=== PATIENT | female | born 1945 | race Caucasian/White ===

== ENCOUNTER 2017-07-23 13:02 | Observation (INO) ==
[2017-07-23 14:08] LABS: Basophils % 0.4 %; Eosinophils # 0.1 K/mcL (0.0-0.6); Eosinophils % 1.1 %; Hematocrit 46.1 % (35.3-44.9); Hemoglobin 15.1 g/dL (11.5-15.4); Immature Granulocytes % 0.3 % (0-4); Lymphocytes # 1.5 K/mcL (0.6-4.6); Lymphocytes % 20.4 %; Mean Corpuscular HGB Conc 32.8 g/dL (31.6-35.5); Mean Corpuscular Volume 88.7 fL (83.0-100.0); Mean Platelet Volume 10.3 fL (9.4-12.4); Monocytes # 0.6 K/mcL (0.0-1.3); Monocytes % 7.8 %; Neutrophils # 5.1 K/mcL (1.6-8.9); Platelet Count 219 K/mcL (140-400); Red Cell Distribution Width 13.2 % (11.5-14.5)
[2017-07-23 14:16] LABS: Bilirubin,Urine Negative (Negative); Blood,Urine Negative (Negative); Clarity,Urine Clear (Clear); Color,Urine Yellow (Yellow); Glucose,Urine (UA) Normal (Normal); Ketones,Urine Trace mg/dL (Negative); Leukocyte Esterase,Urine Negative (Negative); Nitrite,Urine Negative (Negative); Protein,Urine Negative (Neg-Trace); Specific Gravity,Urine 1.022 (1.010-1.025); Urobilinogen,Urine Normal (Normal)
[2017-07-23] MEDS: Nitroglycerin 0.4 MG TAB.SUBL SL PRN ×2 (14:17→14:34)
[2017-07-23 14:18] LABS: BUN/Creatinine Ratio 24 (6-26); Blood Urea Nitrogen 19 mg/dL (7-20); Calcium 10.4 mg/dL (8.6-10.8); Carbon Dioxide 28 mEq/L (19-29); Chloride 104 mEq/L (98-109); Glucose 90 mg/dL (70-99); Osmolality,Calculated 296 (280-300); Potassium 3.7 mEq/L (3.5-4.5); Sodium 142 mEq/L (136-145); eGFR For African Americans > 60 (> 60); eGFR For Non-African Americans > 60 (> 60)
[2017-07-23] MEDS ORDERED: Aspirin 81 MG TAB.CHEW PO ONE (14:41)
--- NOTE | 2017-07-23 14:51 | Emergency Department Note ---
Disposition Clinical Impression: Chest pain of uncertain etiology Disposition: Admitted As Inpatient Condition: Fair Time of Disposition: 15:47 Chest Pain HPI - General Chief Complaint: ED Chest Pain Stated Complaint: chest pain Time Seen by Provider: 07/23/17 13:13 Source: patient Limitations: no limitations Vital Signs Reviewed: Yes Nursing Notes Reviewed: Yes - History of Present Illness HPI Narrative: 71-year-old female complains of chest pain that started 0930 hrs. today with radiation to left arm neck and back of the head and left side. Patient states she has been having this achy chest pain 3/4 in intensity for the past 3 weeks. Patient states the pain is still around 3/4.Patient states she was fine when she woke up today but at 9:30 hours she started having pain in the back of her head and neck on the left side along with intermittent pain down her left arm which is concerning. Patient has a history of high blood pressure and is on atenolol and hydrochlorothiazide. Patient has not had any cardiac events. The patient denies tobacco use and alcohol use. Severity scale (1-10): 0 - Related Data Home Medications Medication Instructions Recorded Confirmed Aspirin 81 mg PO DAILY 10/07/16 07/23/17 Atenolol [Tenormin] 25 mg PO DAILY 10/07/16 07/23/17 Calcium Carbonate/Vitamin D3 1 tab PO DAILY 10/07/16 07/23/17 [Calcium 600-Vit D3 200 Tablet] Glucosamine/D3/Boswellia Naina 1 tab PO DAILY 10/07/16 07/23/17 [Osteo Bi-Flex Tablet] Mv-Mn/FA/Vit K1/Lycop/Lut/Zeax 1 tab PO DAILY 10/07/16 07/23/17 [Ocuvite Eye + Multi Tablet] [place]-3/Dha/Epa/Fish Oil [Fish Oil 1,000 mg PO DAILY 10/07/16 07/23/17 1,000 mg Softgel] Vitamin E Acid Succinate [Vitamin 100 unit PO DAILY 10/07/16 07/23/17 E] hydroCHLOROthiazide 25 mg PO DAILY 10/07/16 07/23/17 [Hydrochlorothiazide] Allergies Allergy/AdvReac Type Severity Reaction Status Date / Time acetaminophen [From Percocet] AdvReac Gastrointestinal Verified 07/23/17 13:05 Upset Oxycodone [From Percocet] AdvReac Gastrointestinal Verified 07/23/17 13:05 Upset triamcinolone [From Kenalog] AdvReac Hypertensio Verified 07/23/17 13:05 n All systems ED: reviewed and negative except as stated. Review of Systems: As Per HPI Constitutional: Denies: fever, weakness Eyes: Denies: vision change ENT ED: Denies: congestion Cardiovascular: Denies: chest pain Respiratory: Denies: cough, dyspnea, wheezes Gastrointestinal: Denies: abdominal pain, nausea, vomiting, diarrhea Genitourinary: Denies: urgency, dysuria Musculoskeletal: Reports: neck pain. Denies: back pain Integumentary: Denies: rash Neurological: Reports: headache. Denies: weakness, numbness, paresthesias Psychiatric: Denies: anxiety Endocrine: Denies: fatigue Chest Pain PMH - Past Medical History Medical history: Reports: hypertension Surgical history: Reports: other Psychiatric history: Reports: no psych history OCC THERAPY ASST history: Reports: bilateral tubal ligation - Social History Smoking Status: Never smoker Alcohol use: Reports: none Drug use: Reports: none Physical Exam Vital Signs Temperature 98.2 F 07/23/17 13:03 Pulse Rate 73 07/23/17 13:03 Respiratory Rate 18 07/23/17 13:03 Blood Pressure 175/113 07/23/17 13:03 O2 Sat by Pulse Oximetry 99 07/23/17 13:03 Temperature 98.2 F 07/23/17 13:41 Pulse Rate 74 07/23/17 14:49 Respiratory Rate 14 07/23/17 14:49 Blood Pressure 115/84 07/23/17 14:49 O2 Sat by Pulse Oximetry 97 07/23/17 14:49 Oxygen Delivery Oxygen Delivery Room Air 18-year-old female who is alert and oriented 3 and is in mild distress secondary to chest discomfort. Discomfort is not reproducible with palpation. Patient is nontoxic appearing. Patient is hypertensive to 135/113. Reexamination blood pressure 115/84 after nitroglycerin 2 - General Limitations: no limitations General appearance: alert, in no apparent distress - Head Head exam: atraumatic, normocephalic, normal inspection - Eye Eye exam: Present: normal appearance, PERRL, EOMI. Absent: nystagmus, miosis, mydriasis - ENT ENT exam: normal exam, normal oropharynx, mucous membranes moist - Neck Neck exam: Present: normal inspection, full ROM, trachea midline, tenderness ( Left side posterior paraspinal) - Chest Chest inspection: Present: normal inspection, symmetric chest wall rise - Respiratory Respiratory exam: Present: normal lung sounds bilaterally - Cardiovascular Cardiovascular exam: Present: regular rate, normal rhythm, normal heart sounds - Abdominal Exam Abdominal exam: Present: soft, Non-Tender. Absent: tenderness, distention, guarding, rebound, rigidity - Extremities Exam Extremities exam: Present: normal inspection, full ROM, normal capillary refill , other (Pulses equal regular bilateral radial and dorsal pedal). Absent: tenderness, pedal edema - Back Exam Back exam: Present: normal inspection, full ROM. Absent: tenderness, CVA tenderness (R), CVA tenderness (L), muscle spasm, vertebral tenderness, rashes Course Vital Signs Temperature 98.2 F 07/23/17 13:03 Pulse Rate 73 07/23/17 13:03 Respiratory Rate 18 07/23/17 13:03 Blood Pressure 175/113 07/23/17 13:03 O2 Sat by Pulse Oximetry 99 07/23/17 13:03 Temperature 97.8 F 07/23/17 16:23 Pulse Rate 63 07/23/17 16:23 Respiratory Rate 14 07/23/17 16:23 Blood Pressure 136/82 07/23/17 16:23 O2 Sat by Pulse Oximetry 100 07/23/17 16:24 Oxygen Delivery Oxygen Delivery Room Air Chest Pain - MDM Narrative Medical decision making narrative: Chest pain ACS/PR rule out. Patient is negative troponins. No signs ischemia on EKG but is having occasional PVCs. Patient has normal-appearing chest x-ray with no widened mediastinum and no pneumothorax no consolidations, clean heart borders visualized notes. Aortic knob. Patient received at 325 of aspirin and 2 doses of 0.4 sublingual nitroglycerin which brought patient's pain from 4-0. One-inch nitroglycerin paste. Patient except physician for admission for trending of troponins and follow-up studies. Dr. Reilly the hospitalist accepted patient for admission at 1544 hrs. - Lab Data Lab results reviewed: Yes I reviewed the patient's lab results. Lab results narrative: Short CBC 07/23/17 Range/Units 13:39 WBC 7.3 (4.3-11.1) K/mcL Hgb 15.1 (11.5-15.4) g/dL Hct 46.1 H (35.3-44.9) % Plt Count 219 (140-400) K/mcL Neutrophils # 5.1 (1.6-8.9) K/mcL BMP 07/23/17 Range/Units 13:39 Sodium 142 (136-145) mEq/L Potassium 3.7 (3.5-4.5) mEq/L Chloride 104 (98-109) mEq/L Carbon Dioxide 28 (19-29) mEq/L BUN 19 (7-20) mg/dL Creatinine 0.79 (0.57-1.11) mg/dL Glucose 90 (70-99) mg/dL Calcium 10.4 (8.6-10.8) mg/dL Cardiac Enzymes 07/23/17 Range/Units 13:39 Troponin I 0.00 (0-0.03) ng/mL Urine 07/23/17 Range/Units 14:06 Urine Color Yellow (Yellow) Urine Clarity Clear (Clear) Urine pH 7.0 (5.0-8.0) pH Units Ur Specific [place] 1.022 (1.010-1.025) Urine Protein Negative (Neg-Trace) mg/dL Urine Glucose (UA) Normal (Normal) mg/dL Result diagrams: 07/23/17 13:39 07/23/17 13:39 Lab Results 07/23/17 07/23/17 07/23/17 Range/Units 13:39 13:39 13:39 WBC 7.3 (4.3-11.1) K/mcL RBC 5.20 H (3.82-4.97) M/mcL Hgb 15.1 (11.5-15.4) g/dL Hct 46.1 H (35.3-44.9) % MCV 88.7 (83.0-100.0) fL MCH 29.0 (28.0-33.3) pg MCHC 32.8 (31.6-35.5) g/dL RDW 13.2 (11.5-14.5) % Plt Count 219 (140-400) K/mcL MPV 10.3 (9.4-12.4) fL Immature Gran % 0.3 (0-4) % Seg Neutrophils % 70.0 % Lymphocytes % 20.4 % Monocytes % 7.8 % Eosinophils % 1.1 % Basophils % 0.4 % Neutrophils # 5.1 (1.6-8.9) K/mcL Lymphocytes # 1.5 (0.6-4.6) K/mcL Monocytes # 0.6 (0.0-1.3) K/mcL Eosinophils # 0.1 (0.0-0.6) K/mcL Basophils # 0.0 (0.0-0.2) K/mcL Sodium 142 (136-145) mEq/L Potassium 3.7 (3.5-4.5) mEq/L Chloride 104 (98-109) mEq/L Carbon Dioxide 28 (19-29) mEq/L BUN 19 (7-20) mg/dL Creatinine 0.79 (0.57-1.11) mg/dL Est GFR ( Amer) > 60 (> 60) Est GFR (Non-Af Amer) > 60 (> 60) BUN/Creatinine Ratio 24 (6-26) Glucose 90 (70-99) mg/dL Calculated Osmolality 296 (280-300) Calcium 10.4 (8.6-10.8) mg/dL Troponin I 0.00 (0-0.03) ng/mL Urine Color (Yellow) Urine Clarity (Clear) Urine pH (5.0-8.0) pH Units Ur Specific [place] (1.010-1.025) Urine Protein (Neg-Trace) mg/dL Urine Glucose (UA) (Normal) mg/dL Urine Ketones (Negative) mg/dL Urine Blood (Negative) Urine Nitrite (Negative) Urine Bilirubin (Negative) Urine Urobilinogen (Normal) mg/dL Ur Leukocyte Esterase (Negative) Ur Culture Indicated? (NO) 07/23/17 Range/Units 14:06 WBC (4.3-11.1) K/mcL RBC (3.82-4.97) M/mcL Hgb (11.5-15.4) g/dL Hct (35.3-44.9) % MCV (83.0-100.0) fL MCH (28.0-33.3) pg MCHC (31.6-35.5) g/dL RDW (11.5-14.5) % Plt Count (140-400) K/mcL MPV (9.4-12.4) fL Immature Gran % (0-4) % Seg Neutrophils % % Lymphocytes % % Monocytes % % Eosinophils % % Basophils % % Neutrophils # (1.6-8.9) K/mcL Lymphocytes # (0.6-4.6) K/mcL Monocytes # (0.0-1.3) K/mcL Eosinophils # (0.0-0.6) K/mcL Basophils # (0.0-0.2) K/mcL Sodium (136-145) mEq/L Potassium (3.5-4.5) mEq/L Chloride (98-109) mEq/L Carbon Dioxide (19-29) mEq/L BUN (7-20) mg/dL Creatinine (0.57-1.11) mg/dL Est GFR ( Amer) (> 60) Est GFR (Non-Af Amer) (> 60) BUN/Creatinine Ratio (6-26) Glucose (70-99) mg/dL Calculated Osmolality (280-300) Calcium (8.6-10.8) mg/dL Troponin I (0-0.03) ng/mL Urine Color Yellow (Yellow) Urine Clarity Clear (Clear) Urine pH 7.0 (5.0-8.0) pH Units Ur Specific [place] 1.022 (1.010-1.025) Urine Protein Negative (Neg-Trace) mg/dL Urine Glucose (UA) Normal (Normal) mg/dL Urine Ketones Trace H (Negative) mg/dL Urine Blood Negative (Negative) Urine Nitrite Negative (Negative) Urine Bilirubin Negative (Negative) Urine Urobilinogen Normal (Normal) mg/dL Ur Leukocyte Esterase Negative (Negative) Ur Culture Indicated? NO (NO) - Radiology Data Radiology results reviewed: Yes I reviewed the patient's radiology results. Chest X-Ray 07/23/17 14:01 IMPRESSION: No acute abnormality. D/ / León Cintron MD / León Cintron MD Interpreting Provider: León Cintron MD - EKG Data EKG attestation: Yes I reviewed and interpreted this EKG. EKG results narrative: EKG taken 07/23/2017 and 1311 hrs. shows a sinus rhythm with occasional PVCs at a rate of 72 beats a minute without any acute ST elevations or depressions melees, rest widening or QT prolongation. No Brugada. EKG was compared to previous EKG taken July 17 between is also shows sinus rhythm with occasional PVCs at rate 67 bpm similar morphology on baseline. Heart Score - Score History: Moderately Suspicious EKG: Non Specific repolarisation Disturbance Age: Greater than 65 Risk Factors: 1-2 risk factors Troponin: Less than normal limit HEART Score Total: 5 Attestation Statement - Attestation Attestation: I examined this patient and my medical decision-making was reviewed with the Resident Physician. I agree with the documented findings, disposition and treatment plan as described except to the extent set forth below. 71-year-old female presents to the emergency department because of chest pain. Over the past 3 weeks been having recurring episodes of short duration chest discomfort which she describes a tight sensation. She is also an intermittent episodes of left jaw pain and left arm pain that sometimes correlate with the chest discomfort but not always. Cannot really decipher any exertional provocation of symptoms. No diaphoresis. No nausea. No dyspnea. Also complains of some pain in the left occipital scalp. No recent trauma. Pleasant, well-appearing female in no apparent distress. She is talkative and interactive. Tender to palpation along the left occipital scalp. Neck is supple without adenopathy. Chest is clear to auscultation bilaterally. Cardiac exam regular without rubs or gallops. Chest wall nontender. Abdomen soft, non-distended and non-tender. EKG presentation and has frequent PVCs but no other acute abnormality. Initial metabolic workup and troponins are normal. She had chest pain upon arrival and this resolved after nitroglycerin. She is given aspirin and will be admitted for further evaluation
[2017-07-23] MEDS ORDERED: Nitroglycerin 1 INCH/GM PACKET TP ONE (15:46)
--- NOTE | 2017-07-23 17:45 | Internal Med History&Physical ---
Date of Encounter: 07/23/17 Time of Encounter: 17:42 Assessment and Plan (1) Precordial chest pain Current visit: Yes Status: Acute Atypical chest pain. However the patient has risk factors therefore will observe. Monitor on telemetry. Trend troponin. Obtain echocardiogram and stress test in the morning. (2) Essential hypertension Current visit: Yes Status: Acute Continue her home medications. (3) Anxiety Current visit: Yes Status: Acute Reassurance and therapeutic communication. No medication needed at this time. Internal Medicine - H&P: HPI Chief complaint: Chest pain Admitted From: Emergency Dept Plans for Post Hospital Care: Home History of present illness: Ms. Nevarez is a 71 year old female with past medical history significant for essential hypertension and mitral valve prolapse. She reports that she has been having mild intensity left-sided aching chest pain for 2 weeks. Today she developed left jaw pain which was pressure-like and radiating down the left arm , not associated with nausea or diaphoresis, not related to exertion. She felt generally fatigued today and because of these symptoms she decided to come to the hospital. A 10 point review of systems was negative except as above Surgical history: Carpal tunnel repair and tubal ligation Family history: patient's father suffered with heart disease and of stroke Social history: Never smoker, denies alcohol and drug use. Past Med Surg Social Fam HX - Past Medical History Medical history: hypertension Psychiatric history: no psych history - Past Surgical History Surgical History: other - Social History Smoking Status: Never smoker Smokeless Tobacco Status: No Alcohol use: none Drug use: none - Family History Father Living Status: Hx Family Cardiac Disorders: Yes Internal Medicine - H&P: Meds Aspirin 81 mg PO DAILY 10/07/16 [History] Atenolol [Tenormin] 25 mg PO DAILY 10/07/16 [History] Calcium Carbonate/Vitamin D3 [Calcium 600-Vit D3 200 Tablet] 1 tab PO DAILY [History] Glucosamine/D3/Boswellia Naina [Osteo Bi-Flex Tablet] 1 tab PO DAILY 10/07/16 [ History] Mv-Mn/FA/Vit K1/Lycop/Lut/Zeax [Ocuvite Eye + Multi Tablet] 1 tab PO DAILY 10/07 [History] [place]-3/Dha/Epa/Fish Oil [Fish Oil 1,000 mg Softgel] 1,000 mg PO DAILY 10/07/16 [History] Vitamin E Acid Succinate [Vitamin E] 100 unit PO DAILY 10/07/16 [History] hydroCHLOROthiazide [Hydrochlorothiazide] 25 mg PO DAILY 10/07/16 [History] 3 Allergy/AdvReac Type Severity Reaction Status Date / Time acetaminophen [From Percocet] AdvReac Gastrointestinal Verified 07/23/17 13:05 Upset Oxycodone [From Percocet] AdvReac Gastrointestinal Verified 07/23/17 13:05 Upset triamcinolone [From Kenalog] AdvReac Hypertensio Verified 07/23/17 13:05 n All Systems PM: A 10-system review of systems was performed and is negative for pertinent findings except as documented above in the HPI. - Constitutional Vitals: Temp Pulse Resp BP Pulse Ox 97.8 F 63 14 136/82 100 07/23/17 16:23 07/23/17 16:23 07/23/17 16:23 07/23/17 16:23 07/23/17 16:24 General appearance: Present: A&O X 3 - Eye Eye exam: Present: PERRL, conjuntiva pink, sclera anicteric Pupils: Present: PERRL - Respiratory Respiratory exam: Present: CTAB. Absent: accessory muscle use, rales, rhonchi, wheezes - Cardiovascular Cardiovascular exam: Present: RRR, +S1, +S2. Absent: diastolic murmur, gallop, rubs, systolic murmur - GI/Abdominal GI/Abdominal exam: Present: normal bowel sounds, soft, no peritoneal signs. Absent: distended, tenderness - Neurological Exam Neurological exam: Present: CN II-XII intact, oriented X3, no focal deficits. Absent: pronater drift, facial droop, speech deficit Internal Med - H&P Results - Labs CBC & Chem 7: 07/23/17 13:39 07/23/17 13:39 - EKG Data -: EKG Interpreted by Myself EKG shows normal: sinus rhythm (Rare PVCs), intervals, ST-T waves Rate: normal (7 2 bpm)
[2017-07-23] MEDS ORDERED: *HR* Morphine 2 MG/ML SYRINGE IVP PRN (17:49)
[2017-07-23] MEDS ORDERED: Ondansetron 4 MG/2 ML VIAL IVP PRN (17:49)
[2017-07-23] MEDS ORDERED: Naloxone 0.4 MG/ML INJ IVP PRN (17:49)
[2017-07-24 01:42] LABS: Basophils % 0.4 %; Eosinophils # 0.1 K/mcL (0.0-0.6); Eosinophils % 1.6 %; Hematocrit 43.3 % (35.3-44.9); Hemoglobin 14.1 g/dL (11.5-15.4); Immature Granulocytes % 0.3 % (0-4); Lymphocytes # 2.3 K/mcL (0.6-4.6); Lymphocytes % 33.4 %; Mean Corpuscular HGB Conc 32.6 g/dL (31.6-35.5); Mean Corpuscular Hemoglobin 28.8 pg (28.0-33.3); Mean Corpuscular Volume 88.5 fL (83.0-100.0); Mean Platelet Volume 10.1 fL (9.4-12.4); Monocytes # 0.6 K/mcL (0.0-1.3); Monocytes % 9.1 %; Neutrophils # 3.9 K/mcL (1.6-8.9); Platelet Count 206 K/mcL (140-400); Red Blood Count 4.89 M/mcL (3.82-4.97); Red Cell Distribution Width 13.2 % (11.5-14.5); Segmented Neutrophils % 55.2 %
[2017-07-24 01:56] LABS: BUN/Creatinine Ratio 24 (6-26); Blood Urea Nitrogen 18 mg/dL (7-20); Calcium 8.7 mg/dL (8.6-10.8); Carbon Dioxide 27 mEq/L (19-29); Chloride 104 mEq/L (98-109); Chol/HDL Ratio 3.4 (0-4.9); Cholesterol 148 mg/dL (< 200); Glucose 94 mg/dL (70-99); HDL Cholesterol 44 mg/dL (40-59); LDL Cholesterol,Calculated 81 mg/dL (0-99); Osmolality,Calculated 292 (280-300); Potassium 3.2 mEq/L (3.5-4.5); Triglycerides 117 mg/dL (< 150); eGFR For African Americans > 60 (> 60); eGFR For Non-African Americans > 60 (> 60)
[2017-07-24 01:57] LABS: Sodium 140 mEq/L (136-145)
[2017-07-24] MEDS ORDERED: Regadenoson 0.4 MG/5 ML SYRINGE IVP ONE (06:42)
[2017-07-24] MEDS ORDERED: Cholecalciferol (D-3) 1,000 UNIT TABLET PO SCH (09:00)
[2017-07-24] MEDS ORDERED: Aspirin 81 MG TAB.CHEW PO SCH (09:00)
[2017-07-24] MEDS ORDERED: hydroCHLOROthiazide 25 MG TABLET PO SCH (09:00)
[2017-07-24 15:20] VITALS: BP 137/80
--- NOTE | 2017-07-24 15:37 | Electrocardiograph Report ---
[place] [address] Test Date: 2017-07-23 Pat Name: Janet Nevarez Department: 104 Room: 3B46 Gender: F Sewing Trimmer: : [id number] Requested By: Mg Patton Order Number: [id number] Reading MD: Marv Corley Measurements Intervals [place] Rate: 72 P: 47 MN: 151 QRS: 49 QRSD: 99 T: 9 QT: 380 QTc: 405 Interpretive Statements SINUS RHYTHM WITH OCCASIONAL VENTRICULAR PREMATURE COMPLEXES POSSIBLE LEFT ATRIAL ENLARGEMENT INCOMPLETE RIGHT BUNDLE BRANCH BLOCK NONSPECIFIC ST & T-WAVE ABNORMALITY Electronically Signed On 07-24-2017 15:36:12 EST by Marv Corley
--- NOTE | 2017-07-24 17:35 | Discharge Summary ---
Date of Encounter: 07/24/17 Time of Encounter: 17:30 - Discharge Diagnosis (1) Precordial chest pain Priority: Primary Status: Acute Comments: Patient reports atypical chest pain. Chest pain palpitations have been occurring frequently last few weeks. Patient recently wore a Holter monitor that has not been resulted yet. She reported atypical chest pain to her left chest, with radiation to jaw and her left arm. She denied any associated nausea , vomiting, diaphoresis. There are no aggravating or relieving factors. She also reports recent fatigue. Echocardiogram showed LVEF of 55% with mild LV DD, mild AR, mild TR, mild MT, normal wall segment motion. Stress test reveals a gated EF of greater than 70% , perfusion imaging was negative for ischemia or infarct. EKG on admission showed normal sinus rhythm with occasional PVCs, nonspecific ST abnormality. Rate is 72, MT interval 151, QRS 99, QTC 405. Chest x-ray is negative for any acute process. Troponins negative. The pain is not reproducible with movement, deep inspiration, palpation. She denies chest pain since arrival. S1 and S2 is heard with a regular rate and rhythm, no gallops, clicks, murmurs. Testing has been negative, patient is stable and appropriate for discharge. Chest pain is atypical, most likely related to stress or anxiety. We have put in a web request for patient to be seen in cardiology office. Patient also has an appointment with primary care in 3 days. (2) Palpitations Priority: Secondary Status: Acute Comments: Patient reports feeling palpitations for the last 3 weeks. Is intermittent. She denies any associated shortness of breath, dizziness, or nausea. She is noted to have PVCs on her EKG, as well as ventricular bigeminy at the beginning of her stress test. Patient denies chest pain currently. She did wear a Holter monitor last week, she has not received results yet. Plan as above (3) Essential hypertension Priority: Secondary Status: Chronic Comments: Blood pressures well controlled. Continue home medication regimen. (4) Anxiety Priority: Secondary Status: Chronic Comments: Chronic. Patient does not take any medication at this time. Follow with primary care as needed. - Discharge Medications Prescriptions: Lisinopril [Zestril] 5 mg PO DAILY #30 tablet Home Medications: Aspirin 81 mg PO DAILY 10/07/16 [History] Atenolol [Tenormin] 25 mg PO DAILY 10/07/16 [History] Calcium Carbonate/Vitamin D3 [Calcium 600-Vit D3 200 Tablet] 1 tab PO DAILY [History] Glucosamine/D3/Boswellia Naina [Osteo Bi-Flex Tablet] 1 tab PO DAILY 10/07/16 [ History] Mv-Mn/FA/Vit K1/Lycop/Lut/Zeax [Ocuvite Eye + Multi Tablet] 1 tab PO DAILY 10/07 [History] [place]-3/Dha/Epa/Fish Oil [Fish Oil 1,000 mg Softgel] 1,000 mg PO DAILY 10/07/16 [History] Vitamin E Acid Succinate [Vitamin E] 100 unit PO DAILY 10/07/16 [History] hydroCHLOROthiazide [Hydrochlorothiazide] 25 mg PO DAILY 10/07/16 [History] Lisinopril [Zestril] 5 mg PO DAILY #30 tablet 07/24/17 [Rx] Allergies/Adverse Reactions: 3 Allergy/AdvReac Type Severity Reaction Status Date / Time acetaminophen [From Percocet] AdvReac Gastrointestinal Verified 07/23/17 13:05 Upset Oxycodone [From Percocet] AdvReac Gastrointestinal Verified 07/23/17 13:05 Upset triamcinolone [From Kenalog] AdvReac Hypertensio Verified 07/23/17 13:05 n Procedures/tests Complete & Pending: Procedures Performed prior 72 hours Category Date Time Status NM connor perf SPECT multi [NM] Routine Exams 07/24/17 06:00 Taken EV echocardiogram Routine Y 07/24/17 17:52 Completed SP pharm nuclear stress Routine Y 07/23/17 17:52 Completed Date of admission: 07/23/17 15:51 Primary care physician: Osbaldo Valdez Jr, MD Discharging clinician: Aure Iglesias (rosette) Anticipated date of discharge: 07/24/17 - Patient Status Disposition: Home, Self-Care Condition: Fair Functional capacity at discharge: independent ambulation Overall status at discharge: patient is back to baseline - Discharge Instructions Follow Up With: [facility] [Provider Group] (We have web requested you an appointment with [facility]. They should be call you within the next few days with an appointment if not please call them at [phone] option 1. Thank you!! ) Osbaldo Valdez Jr, MD [Primary Care Provider] - 07/27/17 10:35 am Additional Instructions: Please follow-up with cardiology as well as her primary care provider as scheduled. Your new blood pressure medication is at your pharmacy. Return to the emergency department as needed. Return to your normal diet and activities as tolerated. Resume your normal home medications. - Diet and Activity Activity: increase activity as tolerated Diet: advance to your usual diet Hospital course: Ms. Nevarez is a 71 year old female with past medical history of anxiety and hypertension. No significant cardiac history in the past. Patient reports intermittent palpitations and atypical chest pain. Stress test was negative, echo with preserved function and multi valve dysfunction. Patient will follow- up with cardiology in the office. She has appointment with Dr. Valdez in 3 days. I have added lisinopril for hypertension on arrival. Continue to monitor. She denies chest pain. She is stable and appropriate for discharge. Please see assessment and plan for hospital course. - Time Spent with Patient Total time spent providing and/or coordinating discharge services: Less than 30 minutes - Constitutional Vitals: Temp Pulse Resp BP Pulse Ox 97.7 F 57 16 137/80 98 07/24/17 15:16 07/24/17 15:16 07/24/17 15:16 07/24/17 15:16 07/24/17 15:16 General appearance: Present: cooperative, A&O X 3, pleasant, answers questions appropriately - Head Head exam: Present: atraumatic, normal inspection, normocephalic - Eye Eye exam: Present: normal appearance, conjuntiva pink, sclera anicteric - Neck Neck exam general surgery: Present: supple, trachea midline. Absent: lymphadenopathy, tenderness - Respiratory Respiratory exam: Present: chest wall tenderness, CTAB. Absent: accessory muscle use, decreased breath sounds, rales, rhonchi, wheezes - Cardiovascular Cardiovascular exam: Present: RRR, +S1, +S2. Absent: diastolic murmur, gallop, rubs, systolic murmur - GI/Abdominal GI/Abdominal exam: Present: normal bowel sounds, soft. Absent: distended, hepatomegaly, tenderness - Extremities Exam Extremities exam: Present: warm, radial pulses palpable and symmetrical. Absent : calf tenderness, cyanotic, pedal edema - Neurological Exam Neurological exam: Present: alert, oriented X3, no focal deficits. Absent: facial droop, speech deficit - Skin Skin exam: Present: dry, intact, normal color, warm. Absent: rash
== END 2017-07-24 18:13 | disposition home or self-care (01) ==
LOC: 3BNU 13:02 → EMEROO 13:02 → 3BNU 16:17
PROVIDERS: ADMIT Hospitalist; ATTEND Registered Nurse

== ENCOUNTER 2020-04-01 07:02 | Observation (INO) ==
[2020-04-01] MEDS ORDERED: Ondansetron 4 MG/2 ML VIAL IVP ONE (07:31)
[2020-04-01] MEDS ORDERED: diazePAM 10 MG/2 ML SYRINGE IVP ONE (07:32)
[2020-04-01 07:54] LABS: Basophils % 0.1 %; Eosinophils % 0.2 %; Hematocrit 47.6 % (35.3-44.9); Hemoglobin 15.9 g/dL (11.5-15.4); Immature Granulocytes % 0.4 % (0-4); Lymphocytes # 1.1 K/mcL (0.6-4.6); Lymphocytes % 11.7 %; Mean Corpuscular HGB Conc 33.4 g/dL (31.6-35.5); Mean Corpuscular Hemoglobin 29.4 pg (28.0-33.3); Monocytes # 0.4 K/mcL (0.0-1.3); Monocytes % 4.5 %; Neutrophils # 7.4 K/mcL (1.6-8.9); Platelet Count 195 K/mcL (140-400); Red Blood Count 5.41 M/mcL (3.82-4.97); Red Cell Distribution Width 13.1 % (11.5-14.5); Segmented Neutrophils % 83.1 %
[2020-04-01 08:15] LABS: Alanine Aminotransferase 13 Units/L (7-52); Albumin 4.3 g/dL (3.5-5.7); Albumin/Globulin Ratio 1.6 (1.1-2.2); Alkaline Phosphatase 68 Units/L (34-104); Aspartate Amino Transferase 19 Units/L (13-39); BUN/Creatinine Ratio 26 (6-26); Bilirubin,Total 1.1 mg/dL (0.3-1.0); Blood Urea Nitrogen 23 mg/dL (8-23); Calcium 10.1 mg/dL (8.6-10.3); Carbon Dioxide 24 mEq/L (23-29); Chloride 104 mEq/L (98-107); Globulin 2.7 g/dL (2.4-3.5); Glucose 120 mg/dL (70-105); Magnesium 1.9 mg/dL (1.6-2.6); Osmolality,Calculated 299 (280-300); Potassium 3.2 mEq/L (3.5-5.1); Sodium 142 mEq/L (136-145); eGFR For African Americans > 60 (> 60); eGFR For Non-African Americans > 60 (> 60)
[2020-04-01 08:16] LABS: Troponin I < 0.03 ng/mL (< 0.04)
[2020-04-01] MEDS ORDERED: Potassium Effervescent 25 MEQ TABLET.EFF PO ONE (08:26)
[2020-04-01] MEDS ORDERED: 0.9 % Sodium Chloride 1,000 ML IVC ONE (08:28)
[2020-04-01] MEDS ORDERED: 0.9 % Sodium Chloride 1,000 ML ONE (08:30)
[2020-04-01] MEDS ORDERED: Metoclopramide 10 MG/2 ML VIAL IVP ONE (08:37)
[2020-04-01] MEDS ORDERED: Ondansetron 4 MG/2 ML VIAL IVP PRN ×2 (09:47→09:59)
[2020-04-01] MEDS ORDERED: *HR* Promethazine 25 MG/ML VIAL IVP PRN (09:59)
[2020-04-01] MEDS ORDERED: Perflutren Lipid Microsphere 1.3 ML in 0.9 % Sodium Chloride 8.7 ML IVP PRN (11:13)
[2020-04-01] MEDS: Ringers Solution, Lactated 1,000 ML IVC SCH (11:25)
[2020-04-01] MEDS ORDERED: Magnesium Sulfate 1 GM/102 ML PIGGYBACK IVPB ONE (13:42)
[2020-04-01] MEDS ORDERED: atenoloL 25 MG TABLET PO SCH (14:30)
[2020-04-01] MEDS: hydroCHLOROthiazide 25 MG TABLET PO SCH (15:06)
[2020-04-02] MEDS: Ringers Solution, Lactated 1,000 ML IVC SCH (00:39)
[2020-04-02 05:24] LABS: Hematocrit 43.6 % (35.3-44.9); Mean Corpuscular HGB Conc 31.2 g/dL (31.6-35.5); Mean Corpuscular Hemoglobin 28.8 pg (28.0-33.3); Mean Corpuscular Volume 92.4 fL (83.0-100.0); Mean Platelet Volume 10.1 fL (9.4-12.4); Platelet Count 173 K/mcL (140-400); Red Blood Count 4.72 M/mcL (3.82-4.97); Red Cell Distribution Width 13.2 % (11.5-14.5); White Blood Count 7.1 K/mcL (4.3-11.1)
[2020-04-02 05:26] LABS: Hemoglobin 13.6 g/dL (11.5-15.4)
[2020-04-02 05:51] LABS: BUN/Creatinine Ratio 22 (6-26); Blood Urea Nitrogen 17 mg/dL (8-23); Calcium 8.5 mg/dL (8.6-10.3); Carbon Dioxide 28 mEq/L (23-29); Chloride 107 mEq/L (98-107); Glucose 81 mg/dL (70-105); Osmolality,Calculated 293 (280-300); Phosphorous 3.3 mg/dL (2.7-4.5); Potassium 3.4 mEq/L (3.5-5.1); Sodium 141 mEq/L (136-145); Troponin I < 0.03 ng/mL (< 0.04); eGFR For African Americans > 60 (> 60); eGFR For Non-African Americans > 60 (> 60)
[2020-04-02] MEDS: Loratadine 10 MG TABLET PO SCH (10:22)
[2020-04-02] MEDS: Aspirin 81 MG TAB.CHEW PO SCH (10:22)
[2020-04-02] MEDS: hydroCHLOROthiazide 25 MG TABLET PO SCH (10:22)
[2020-04-02] MEDS: amLODIPine 5 MG TABLET PO SCH (15:40)
[2020-04-02] MEDS ORDERED: Mag Hydrox/Al Hydrox/Simeth 30 ML UDC PO PRN (23:20)
[2020-04-03 05:21] LABS: BUN/Creatinine Ratio 22 (6-26); Blood Urea Nitrogen 16 mg/dL (8-23); Calcium 9.3 mg/dL (8.6-10.3); Carbon Dioxide 28 mEq/L (23-29); Chloride 103 mEq/L (98-107); Glucose 91 mg/dL (70-105); Osmolality,Calculated 289 (280-300); Potassium 3.4 mEq/L (3.5-5.1); Sodium 139 mEq/L (136-145); eGFR For African Americans > 60 (> 60); eGFR For Non-African Americans > 60 (> 60)
[2020-04-03 07:27] VITALS: BP 138/85
[2020-04-03] MEDS: hydroCHLOROthiazide 25 MG TABLET PO SCH (10:08)
[2020-04-03] MEDS: Aspirin 81 MG TAB.CHEW PO SCH (10:08)
[2020-04-03] MEDS: amLODIPine 5 MG TABLET PO SCH (10:09)
[2020-04-03] MEDS: Loratadine 10 MG TABLET PO SCH (10:09)
== END 2020-04-03 12:15 | disposition home or self-care (01) ==
LOC: EMEROOARM 07:02 → 3BNU 07:02
PROVIDERS: ADMIT Internal Medicine; ATTEND Internal Medicine